=== PATIENT | female | born 1955 | race Caucasian/White ===

== ENCOUNTER 2017-06-23 10:49 | Emergency (ER) | payer BC ==
[2017-06-23 11:07] VITALS: BP 104/66
--- NOTE | 2017-06-23 11:14 | UC ---
Lower Extremity/Ankle HPI - HPI Summary HPI Summary: pain in right lateral ankle and fibula after twisting foot in a pot hole last night while running - History of Current Complaint Chief Complaint: UCLowerExtremity Stated Complaint: ANKLE INJURY Time Seen by Provider: 06/23/17 11:00 Hx Obtained From: Patient ?: No Onset/Duration: Sudden Onset, Lasting Days - 1 Severity Initially: Moderate Severity Currently: Moderate Pain Intensity: 7 Pain Scale Used: 0-10 Numeric Aggravating Factor(s): Standing, Ambulation Alleviating Factor(s): Rest, Elevation, Ice, OTC Meds Able to Bear Weight: Yes - Allergies/Home Medications Allergies/Adverse Reactions: Allergies Allergy/AdvReac Type Severity Reaction Status Date / Time Latex Allergy Rash Verified 06/23/17 10:54 PMH/Surg Hx/FS Hx/Imm Hx Previously Healthy: No Cancer History: Breast Cancer - Surgical History Surgical History: Yes Surgery Procedure, Year, and Place: PORT PUT IN AND REMOVED FOR CHEMO, DOUBLE MASECTOMY, RECONSTRUCTION, OOPHERECTOMY, THYROID BIOPSY - Family History Known Family History: Positive: None - Social History Occupation: Employed Full-time Lives: With Family Alcohol Use: Rare Substance Use Type: None Smoking Status (MU): Never Smoked Tobacco Review of Systems Constitutional: Negative Skin: Negative Eyes: Negative ENT: Negative Respiratory: Negative Cardiovascular: Negative Gastrointestinal: Negative Genitourinary: Negative Motor: Negative Neurovascular: Negative Musculoskeletal: Arthralgia - right lateral ankle and fibula pain Neurological: Negative Psychological: Negative Is Patient Immunocompromised?: No All Other Systems Reviewed And Are Negative: Yes Physical Exam Triage Information Reviewed: Yes Appearance: Well-Appearing, Well-Nourished, Pain Distress Vital Signs: Initial Vital Signs Temp 99.7 F 06/23/17 10:55 Pulse 71 06/23/17 10:55 Resp 16 06/23/17 10:55 BP 104/66 06/23/17 10:55 Pulse Ox 100 06/23/17 10:55 Vital Signs Reviewed: Yes Eye Exam: Normal Eyes: Positive: Conjunctiva Clear ENT Exam: Normal ENT: Positive: Normal ENT inspection, Hearing grossly normal. Negative: Nasal congestion, Nasal drainage, Trismus, Muffled/hoarse voice Dental Exam: Normal Neck exam: Normal Neck: Positive: Supple, Nontender, No Lymphadenopathy Respiratory Exam: Normal Respiratory: Positive: Chest non-tender, No respiratory distress, No accessory muscle use Cardiovascular Exam: Normal Cardiovascular: Positive: RRR, Pulses Normal, Brisk Capillary Refill Musculoskeletal Exam: Normal Musculoskeletal: Positive: Strength Limited @, ROM Limited @, Edema @ Neurological Exam: Normal Neurological: Positive: Alert, Muscle Tone Normal Psychological Exam: Normal Skin Exam: Normal Diagnostics - Radiology No standard instances Xray Interpretation: Positive (See Comments) - tr Radiology Interpretation Completed By: ED Physician, Radiologist Lower Extremity Course/Dx - Course Course Of Treatment: cam boot, crutches non-weight bearing, pain med, rice, follow with Dr. Lebron next 2-3 days - Differential Dx/Diagnosis Provider Diagnoses: transverse fracture right lateral malleolus Discharge - Discharge Plan Condition: Stable Disposition: HOME Prescriptions: Ibuprofen TAB* [Motrin TAB* 600 MG] 600 mg PO Q6H PRN #30 tab PRN Reason: Pain - Mild To Moderate oxyCODONE/Acetamin 5/325 MG* [Percocet 5/325 TAB*] 1 tab PO Q6H PRN #16 tab MDD 4 PRN Reason: Pain - Moderate To Severe Patient Education Materials: Ankle Fracture (ED), Crutch Instructions (ED), RICE Therapy (ED) Referrals: Derek Lebron MD [Medical Doctor] - 3 Days Additional Instructions: Non-weight bearing
--- NOTE | 2017-06-23 11:51 | RAD ---
INDICATION: Right ankle injury. TECHNIQUE: 3 views of the right ankle were obtained. FINDINGS: There is soft tissue swelling present along the anterolateral aspect of the ankle. There is a transverse fracture through the tip of the lateral malleolus which is nondisplaced. No other fractures are seen. Joint spaces appear maintained. IMPRESSION: TRANSVERSE FRACTURE THROUGH THE TIP OF THE LATERAL MALLEOLUS.
--- NOTE | 2017-06-23 11:54 | RAD ---
INDICATION: Right lower leg injury. TECHNIQUE: 2 views of the right lower leg were obtained. FINDINGS: The bones are normal alignment. Again note is made of a fracture through the tip of the lateral malleolus. No additional fractures are seen. IMPRESSION: NO ADDITIONAL FRACTURE IS SEEN.
== END 2017-06-23 12:17 | disposition home or self-care (01) ==
LOC: UCEAST 10:49
DX: S82.51XA Displaced fracture of medial malleolus of right tibia, initial encounter for closed fracture (principal); X50.1XXA Overexertion from prolonged static or awkward postures, initial encounter; Y92.9 Unspecified place or not applicable; Z91.040 Latex allergy status; Z85.3 Personal history of malignant neoplasm of breast; Z90.13 Acquired absence of bilateral breasts and nipples
CPT/HCPCS: 99213; G0463